=== PATIENT | female | born 1950 | race Caucasian/White ===

== ENCOUNTER 2019-12-31 13:15 | Inpatient (IN) | payer MEDICARE ==
[~2019-12-31] VITALS: Ht 170.2 cm; Wt 86.6 kg
[~2019-12-31 13:15] MED LIST: ARTIFICIAL TEAR15 M3 OP; ASPIRIN EC81 M1 PO; BUPROPION XL150 MG PO; CARBIDOPA-LEVO1 EAC9 PO; HYDROCODONE-AP1 EAC6 PO; LIDODERM 5%1 PATC1 TRANSDERM; LIPITOR10 MG PO; MIRALAX17 GM PO; NAPROSYN500 MG PO; OXYBUTYNIN 5 MG5 M2 PO; REQUIP 0.25 M0.25 M1 PO; SENOKOT-S1 TA1 PO; SINEMET 25-1001 EAC1 PO; TUMS PO; VITAMIN D1000 UNI1 PO
[2019-12-31 13:18] VITALS: BP 164/79
[2019-12-31] MEDS ORDERED: CARBIDOPA-LEVO1 EA10 PO (13:29)
[2019-12-31] MEDS ORDERED: ARICEPT10 M1 PO (13:29)
[2019-12-31] MEDS ORDERED: CRANBERRY450 M1 PO (13:29)
[2019-12-31] MEDS ORDERED: KRISTALOSE20 GM PO (13:30)
[2019-12-31] MEDS ORDERED: IBUPROFEN 600600 M1 PO (13:30)
[2019-12-31] MEDS ORDERED: PROTONIX40 M2 PO (13:31)
[2019-12-31 14:06] LABS: ABSOLUTE BASOPHILS 0.1 thou/uL (0.0-0.2); ABSOLUTE EOSINOPHILS 0.3 thou/uL (0.0-0.7); ABSOLUTE LYMPHOCYTES 0.7 thou/uL (0.8-5.3); ABSOLUTE MONOCYTES 0.5 thou/uL (0.0-1.2); BASOPHILS 0.8 %; EOSINOPHILS 3.8 %; HEMATOCRIT 41.6 % (37.0-47.0); HEMOGLOBIN 13.8 gm/dL (12.0-15.0); LYMPHOCYTES 9.1 %; MCHC 33.2 g/dL (28.0-37.0); MCV 87.3 fL (80.0-100.0); MONOCYTES 6.3 %; MPV 8.6 fl. (7.2-11.1); NUCLEATED RBCS 0 /100WBC; PLATELET COUNT* 212 thou/uL (150-400); RBC 4.77 mil/uL (4.20-5.00); RDW-CV 14.5 % (10.5-14.5); WBC 7.5 thou/uL (4.0-11.0)
[2019-12-31 14:42] LABS: CALCIUM 8.6 mg/dL (8.5-10.1); CREATININE 0.9 mg/dL (0.6-1.3); POTASSIUM 3.9 mmol/L (3.5-5.1)
[2019-12-31 14:47] LABS: ALBUMIN 3.4 g/dL (3.4-5.0); TOTAL BILIRUBIN 0.6 mg/dL (<0.1-1.0); TOTAL PROTEIN 6.8 g/dL (6.4-8.2)
[2019-12-31 16:08] LABS: URINE BILIRUBIN NEGATIVE (Negative); URINE BLOOD NEGATIVE (Negative); URINE CLARITY CLEAR; URINE COLOR YELLOW; URINE GLUCOSE-RANDOM NEGATIVE (Negative); URINE KETONES NEGATIVE (Negative); URINE LEUKOCYTES-REFLEX NEGATIVE (Negative); URINE NITRITE-REFLEX NEGATIVE (Negative); URINE PROTEIN NEGATIVE (Negative); URINE UROBILINOGEN 0.2 E.U./dl (0.2-1.0)
--- NOTE | 2019-12-31 17:02 | EKG ---
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1950 Requested By: Pedro Aragon Order Number: [id number] MD: Trever Georges Measurements Intervals [place] Rate: 59 P: 34 WA: 175 QRS: -19 QRSD: 107 T: 4 QT: 469 QTc: 465 Interpretive Statements Sinus rhythm Borderline left axis deviation Low voltage, precordial leads Borderline T abnormalities, anterior leads No previous ECG available for comparison Electronically Signed On 12-31-2019 17:01:58 CDT by Trever Georges [email or web address] <ELECTRONICALLY SIGNED> By: Trever Georges MD, FACC 12/31/19 1701 1351 1351 Trever Georges MD, [facility] /EPI
[2019-12-31 18:00] VITALS: BP 164/75
[2019-12-31 20:04] VITALS: BP 154/67
[2019-12-31 20:22] LABS: MAGNESIUM 1.8 mg/dL (1.8-2.4); PHOSPHORUS* 3.4 mg/dL (2.5-4.9)
[2019-12-31 20:24] LABS: AMMONIA < 10 umol/L (11-32); CHOLESTEROL 127 mg/dL (<200); HDL CHOLESTEROL 64 mg/dL (>40); LDL CHOLESTEROL 56 mg/dL (<100); TRIGLYCERIDE 36 mg/dL (<150); VLDL 7 mg/dL (<40)
[2019-12-31 20:25] LABS: SERUM ASSESSMENT CLEAR
[2020-01-01] VITALS: BP 138/64
[2020-01-01 04:00] VITALS: BP 164/74
[2020-01-01 05:40] LABS: ABSOLUTE EOSINOPHILS 0.4 thou/uL (0.0-0.7); ABSOLUTE LYMPHOCYTES 1.4 thou/uL (0.8-5.3); ABSOLUTE MONOCYTES 0.6 thou/uL (0.0-1.2); ABSOLUTE NEUTROPHILS 4.4 thou/uL (1.6-8.1); BASOPHILS 0.5 %; EOSINOPHILS 6.5 %; HEMATOCRIT 39.9 % (37.0-47.0); HEMOGLOBIN 13.3 gm/dL (12.0-15.0); MCHC 33.3 g/dL (28.0-37.0); MCV 87.1 fL (80.0-100.0); MONOCYTES 8.7 %; MPV 8.7 fl. (7.2-11.1); NUCLEATED RBCS 0 /100WBC; PLATELET COUNT* 230 thou/uL (150-400); POLYS 64.3 %; RBC 4.58 mil/uL (4.20-5.00); RDW-CV 14.6 % (10.5-14.5); WBC 6.9 thou/uL (4.0-11.0)
[2020-01-01 06:00] LABS: CALCIUM 8.5 mg/dL (8.5-10.1); CREATININE 0.8 mg/dL (0.6-1.3); POTASSIUM 3.8 mmol/L (3.5-5.1)
[2020-01-01 06:04] LABS: TOTAL BILIRUBIN 0.8 mg/dL (<0.1-1.0); TOTAL PROTEIN 6.2 g/dL (6.4-8.2)
[2020-01-01 08:07] VITALS: BP 111/48
[2020-01-01 12:00] VITALS: BP 139/69
[2020-01-01 16:00] VITALS: BP 152/48
[2020-01-01 20:59] VITALS: BP 129/57
[2020-01-02] VITALS (7 sets, daily range): BP systolic 104–141; BP diastolic 45–73
[2020-01-02 02:06] LABS: GLYCOHEMOGLOBIN (HGB A1C) 5.7 % (4.8-5.6)
[2020-01-02 04:03] LABS: HEMATOCRIT 37.8 % (37.0-47.0); HEMOGLOBIN 12.5 gm/dL (12.0-15.0); MCH 28.5 pg (26.0-34.0); MCHC 32.9 g/dL (28.0-37.0); MCV 86.6 fL (80.0-100.0); MPV 8.6 fl. (7.2-11.1); RBC 4.36 mil/uL (4.20-5.00); RDW-CV 14.4 % (10.5-14.5); WBC 6.3 thou/uL (4.0-11.0)
[2020-01-02 04:24] LABS: CALCIUM 8.4 mg/dL (8.5-10.1); CREATININE 0.9 mg/dL (0.6-1.3); POTASSIUM 3.7 mmol/L (3.5-5.1)
[2020-01-02 20:02] LABS: URINE BILIRUBIN NEGATIVE (Negative); URINE BLOOD TRACE (Negative); URINE CLARITY SL CLOUDY; URINE COLOR STRAW; URINE GLUCOSE-RANDOM NEGATIVE (Negative); URINE KETONES TRACE (Negative); URINE LEUKOCYTES-REFLEX NEGATIVE (Negative); URINE NITRITE-REFLEX NEGATIVE (Negative); URINE PROTEIN NEGATIVE (Negative); URINE SPECIFIC GRAVITY 1.015 (1.005-1.030); URINE UROBILINOGEN 0.2 E.U./dl (0.2-1.0)
[2020-01-02 20:04] LABS: BACTERIA-REFLEX >30 Many /HPF (None Seen); MUCUS 0-3 Light strn/LPF (None Seen); SQUAMOUS 4-10 Moderate /LPF (0-3); URINE RBC 0-2 Rare /HPF (0-2); URINE WBC-REFLEX 0-5 Rare /HPF (0-5)
[2020-01-02 20:05] LABS: CASTS None Seen /LPF (None Seen); CRYSTALS None Seen /LPF (None Seen)
[2020-01-03 04:15] VITALS: BP 125/61
[2020-01-03 07:40] VITALS: BP 157/72
[2020-01-03 12:00] VITALS: BP 113/65
[2020-01-03 16:10] VITALS: BP 96/45
[2020-01-03 20:00] VITALS: BP 100/43
[2020-01-04] VITALS: BP 130/59
[2020-01-04 04:00] VITALS: BP 128/53
[2020-01-04 05:19] LABS: HEMATOCRIT 38.5 % (37.0-47.0); HEMOGLOBIN 12.8 gm/dL (12.0-15.0); MCH 28.7 pg (26.0-34.0); MCHC 33.2 g/dL (28.0-37.0); MCV 86.4 fL (80.0-100.0); MPV 8.5 fl. (7.2-11.1); RBC 4.46 mil/uL (4.20-5.00); WBC 6.3 thou/uL (4.0-11.0)
[2020-01-04 05:50] LABS: ALBUMIN 2.9 g/dL (3.4-5.0); CALCIUM 8.2 mg/dL (8.5-10.1); CREATININE 0.9 mg/dL (0.6-1.3); MAGNESIUM 1.8 mg/dL (1.8-2.4); POTASSIUM 3.6 mmol/L (3.5-5.1); TOTAL BILIRUBIN 0.3 mg/dL (<0.1-1.0); TOTAL PROTEIN 5.9 g/dL (6.4-8.2)
[2020-01-04 08:00] VITALS: BP 122/47
[2020-01-04] MEDS ORDERED: CARBIDOPA-LEVO1 EAC7 PO (10:55)
[2020-01-04] MEDS ORDERED: SINEMET 25-1001 EAC1 PO (10:55)
[2020-01-04 12:00] VITALS: BP 120/49
[2020-01-04 16:00] VITALS: BP 110/53
== END 2020-01-04 18:30 | DRG 689 ==
LOC: M.ERS 13:15 → M.TBA-ER 15:53 → M.2W 18:46
PROVIDERS: Emergency Medicine Emergency Medical Services; Internal Medicine; ADMIT Internal Medicine; ATTEND Internal Medicine
DX: N39.0 Urinary tract infection, site not specified (principal); G93.41 Metabolic encephalopathy; E44.0 Moderate protein-calorie malnutrition; G20 Parkinson's disease; F02.80 Dementia in other diseases classified elsewhere, unspecified severity, without behavioral disturbance, psychotic disturbance, mood disturbance, and anxiety; R53.1 Weakness; F32.9 Major depressive disorder, single episode, unspecified; E78.5 Hyperlipidemia, unspecified; M19.90 Unspecified osteoarthritis, unspecified site; Z20.828 Contact with and (suspected) exposure to other viral communicable diseases; Z68.29 Body mass index [BMI] 29.0-29.9, adult; Z79.82 Long term (current) use of aspirin; Z79.899 Other long term (current) drug therapy; Z88.8 Allergy status to other drugs, medicaments and biological substances

== ENCOUNTER 2020-01-04 17:35 | Inpatient (IN) | payer MEDICARE ==
[~2020-01-04] VITALS: Ht 172.7 cm; Wt 82.8 kg
[~2020-01-04 17:35] MED LIST changes: +ARICEPT10 M1 PO; +CARBIDOPA-LEVO1 EA10 PO; +CARBIDOPA-LEVO1 EAC7 PO; +CRANBERRY450 M1 PO; +IBUPROFEN 600600 M1 PO; +KRISTALOSE20 GM PO; +PROTONIX40 M2 PO
[2020-01-04 18:45] VITALS: BP 138/64
[2020-01-04 20:00] VITALS: BP 152/66
[2020-01-05 04:54] LABS: HEMATOCRIT 39.6 % (37.0-47.0); HEMOGLOBIN 13.2 gm/dL (12.0-15.0); MCH 28.9 pg (26.0-34.0); MCHC 33.3 g/dL (28.0-37.0); MCV 86.7 fL (80.0-100.0); MPV 8.8 fl. (7.2-11.1); RBC 4.57 mil/uL (4.20-5.00); RDW-CV 14.7 % (10.5-14.5); WBC 6.9 thou/uL (4.0-11.0)
[2020-01-05 05:18] LABS: CALCIUM 8.6 mg/dL (8.5-10.1); CREATININE 0.9 mg/dL (0.6-1.3); POTASSIUM 3.4 mmol/L (3.5-5.1)
[2020-01-05 07:54] VITALS: BP 112/58
[2020-01-05 19:00] VITALS: BP 101/49
[2020-01-06 07:30] VITALS: BP 146/63
[2020-01-06 19:00] VITALS: BP 101/75
[2020-01-07 08:00] VITALS: BP 137/58
[2020-01-07 20:31] VITALS: BP 110/52
[2020-01-08 09:30] VITALS: BP 118/59
[2020-01-08 20:15] VITALS: BP 114/48
[2020-01-09 08:00] VITALS: BP 88/50
[2020-01-09 20:14] VITALS: BP 91/45
[2020-01-10 08:00] VITALS: BP 97/55
[2020-01-10 19:50] VITALS: BP 77/35
[2020-01-10 20:30] VITALS: BP 88/38
[2020-01-11 07:00] VITALS: BP 128/60
[2020-01-11 07:58] VITALS: BP 128/60
[2020-01-11 19:00] VITALS: BP 84/43
[2020-01-12 04:51] LABS: HEMOGLOBIN 13.2 gm/dL (12.0-15.0); MCH 28.4 pg (26.0-34.0); MCHC 32.9 g/dL (28.0-37.0); MCV 86.4 fL (80.0-100.0); MPV 8.7 fl. (7.2-11.1); RBC 4.63 mil/uL (4.20-5.00); RDW-CV 14.4 % (10.5-14.5)
[2020-01-12 05:08] LABS: CALCIUM 8.8 mg/dL (8.5-10.1); CREATININE 1.1 mg/dL (0.6-1.3)
[2020-01-12 07:32] VITALS: BP 109/46
[2020-01-12 19:00] VITALS: BP 86/41
[2020-01-13 07:00] VITALS: BP 115/59
[2020-01-13 20:16] VITALS: BP 112/54
[2020-01-14 08:16] VITALS: BP 135/58
[2020-01-14 22:15] VITALS: BP 115/53
[2020-01-15] MEDS ORDERED: REQUIP 1 MG TABL1 M1 PO (07:31)
[2020-01-15 08:08] VITALS: BP 115/55
[2020-01-15 15:06] VITALS: BP 115/55
[2020-01-15 16:49] VITALS: BP 115/55
== END 2020-01-15 15:50 | DRG 56 ==
LOC: M.REH 17:35
PROVIDERS: ADMIT Physical Medicine & Rehabilitation; ATTEND Physical Medicine & Rehabilitation
DX: G20 Parkinson's disease (principal); G93.41 Metabolic encephalopathy; E44.0 Moderate protein-calorie malnutrition; N39.0 Urinary tract infection, site not specified; F02.80 Dementia in other diseases classified elsewhere, unspecified severity, without behavioral disturbance, psychotic disturbance, mood disturbance, and anxiety; F32.9 Major depressive disorder, single episode, unspecified; E78.5 Hyperlipidemia, unspecified; I95.9 Hypotension, unspecified; Z20.828 Contact with and (suspected) exposure to other viral communicable diseases; M19.90 Unspecified osteoarthritis, unspecified site; Z68.27 Body mass index [BMI] 27.0-27.9, adult; Z79.82 Long term (current) use of aspirin; Z79.899 Other long term (current) drug therapy; Z88.8 Allergy status to other drugs, medicaments and biological substances

== ENCOUNTER 2020-05-27 00:47 | Emergency (ER) | payer MEDICARE ==
[~2020-05-27] VITALS: Ht 172.7 cm; Wt 87.7 kg
[~2020-05-27 00:47] MED LIST changes: +REQUIP 1 MG TABL1 M1 PO
[2020-05-27] MEDS ORDERED: LOVENOX40 MG/0.4 SUBQ (00:54)
[2020-05-27 01:27] LABS: URINE BILIRUBIN NEGATIVE (Negative); URINE BLOOD NEGATIVE (Negative); URINE CLARITY CLEAR; URINE COLOR YELLOW; URINE GLUCOSE-RANDOM NEGATIVE (Negative); URINE KETONES NEGATIVE (Negative); URINE LEUKOCYTES-REFLEX TRACE (Negative); URINE NITRITE-REFLEX NEGATIVE (Negative); URINE PROTEIN NEGATIVE (Negative); URINE SPECIFIC GRAVITY >= 1.030 (1.005-1.030); URINE UROBILINOGEN 0.2 E.U./dl (0.2-1.0)
[2020-05-27 01:47] LABS: SQUAMOUS 0-3 Few /LPF (0-3); URINE RBC 3-10 Few /HPF (0-2); URINE WBC-REFLEX >25 Many /HPF (0-5); WBC CLUMPS Few (None Seen)
[2020-05-27 01:48] LABS: BACTERIA-REFLEX >30 Many /HPF (None Seen); CASTS None Seen /LPF (None Seen); CRYSTALS None Seen /LPF (None Seen); MUCUS 0-3 Light strn/LPF (None Seen)
[2020-05-27 02:11] LABS: ABSOLUTE EOSINOPHILS 0.6 thou/uL (0.0-0.7); ABSOLUTE LYMPHOCYTES 0.9 thou/uL (0.8-5.3); ABSOLUTE MONOCYTES 0.6 thou/uL (0.0-1.2); ABSOLUTE NEUTROPHILS 4.6 thou/uL (1.6-8.1); BASOPHILS 0.5 %; EOSINOPHILS 8.4 %; HEMATOCRIT 36.9 % (37.0-47.0); HEMOGLOBIN 12.1 gm/dL (12.0-15.0); LYMPHOCYTES 12.9 %; MCH 27.8 pg (26.0-34.0); MCHC 32.9 g/dL (28.0-37.0); MCV 84.6 fL (80.0-100.0); MONOCYTES 8.6 %; MPV 8.2 fl. (7.2-11.1); NUCLEATED RBCS 0 /100WBC; PLATELET COUNT* 231 thou/uL (150-400); POLYS 69.6 %; RBC 4.36 mil/uL (4.20-5.00); RDW-CV 14.4 % (10.5-14.5); WBC 6.6 thou/uL (4.0-11.0)
[2020-05-27 02:24] LABS: CALCIUM 8.7 mg/dL (8.5-10.1); CREATININE 0.9 mg/dL (0.6-1.3)
[2020-05-27] MEDS ORDERED: BACTRIM DS TAB1 EACH PO (02:32)
[2020-05-27 06:46] VITALS: BP 173/73
== END 2020-05-27 06:48 | disposition home or self-care (01) ==
LOC: M.ERS 00:47
PROVIDERS: Emergency Medicine
DX: N39.0 Urinary tract infection, site not specified (principal); E78.5 Hyperlipidemia, unspecified; M19.90 Unspecified osteoarthritis, unspecified site; G20 Parkinson's disease; Z88.8 Allergy status to other drugs, medicaments and biological substances

== ENCOUNTER 2020-07-13 00:50 | Inpatient (IN) | payer MEDICARE ==
[~2020-07-13] VITALS: Ht 172.7 cm; Wt 85.3 kg
[2020-07-13] VITALS (147 sets, daily range): BP systolic 49–240; BP diastolic 17–135
--- NOTE | ~2020-07-13 | CON ---
[address] [address] CONSULTATION Name: KRYSTLE HDZ Room: [address] IN M.R.#: [id number] Admission: 07/13/20 Attend Phys: Neal Benavides Discharge: Date of : 46 Report #: [id number] THIS REPORT FOR: cc: Cornel Cook MD, Todd A. MD Khosla, Parveen K. MD ~ DATE OF SERVICE: 07/13/2020 HISTORY OF PRESENT ILLNESS: This is a 69-year-old female patient, who was admitted after the patient was found to be asystolic, pulseless, and apneic. The patient is unable to provide any history. I talked to the nurses before and after looking after the patient. I tried to call the patient's son, but was unable to reach him, but I was able to reach the patient's [id number] and she gave a history that this patient has dementia as well as Parkinson disease. She had a cardiac arrest and she was put on hypothermia protocol. The family did not want to proceed with that and hypothermia protocol was discontinued and the patient was started on warming. The patient has not warmed up yet. There was some confusion whether the patient was a DNR or not, but she is a DNR now. She had multiple evaluations when she was here and multiple consultants are involved. The nurses tell me she is not overbreathing the vent and her pupils are fixed and dilated. She has a history of Parkinson disease as well as dementia. Rest of the 14-point review of systems is summarized in other consultants' note, which was reviewed and is noncontributory. PAST MEDICAL HISTORY: Positive for dementia and Parkinson disease with severe compromise of quality of life. FAMILY HISTORY: Unremarkable. SOCIAL HISTORY: She has a son; I could not talk to him, but I did talk to the [id number]. PHYSICAL EXAMINATION: The patient is unresponsive. Her pupils are fixed and dilated. Rest of the neurological examination is not possible. She does not assist the vent. IMPRESSION: I talked to the family in detail that this patient has a severe hypoxic encephalopathy as indicated on the CT scan. If they want to stop everything, it can be done anytime, but they tell me that they like to donate the organs if possible. I told them that will require declaring the patient's brain and that is an elaborate process. The first thing is the patient needs to be warmed up and the patient is in the process of getting warmed up. Once she gets warmed up, we will get an EEG as well as do a clinical examination to see if she has any neurological activity. [place] [address] CONSULTATION Name: KRYSTLE HDZ Room: [address] IN M.R.#: [id number] Admission: 07/13/20 Attend Phys: Neal Benavides Discharge: Date of : 46 Report #: [id number] found, then I will suggest doing a blood brain flow study and if that is also negative, Pulmonology will do the apnea test and if the apnea test does not show any attempt to do breathing, then the patient can be declared brain at that time. I discussed that with the family and the family is agreeable with this plan. I have talked to the automotive specialty technician and they will do the EEG once the patient warms up and I spent more than 50 minutes of time taking care of this patient and majority was spent counseling, coordinating, reviewing the record, talking to the family, and reviewing the patient's imaging study. Thank you very much for this referral. By: [id number] Pérez MD /nt
--- NOTE | ~2020-07-13 | EEG ---
[facility] [address] [place] [address] EEG STUDY REPORT Name: KRYSTLE HDZ Room: [address] IN M.R.#: [id number] Admission: 07/13/20 Attend Phys: Neal Benavides Discharge: Date of : 46 Report #: [id number] THIS REPORT FOR: cc: Cornel Cook MD, Todd A. MD Khosla,Mor Chambers MD ~ DATE OF SERVICE: 07/14/2020 This patient is being evaluated for electrocerebral silence. EEG was done by placing the electrode by standard 10-20 system of electrode placement. Both referential and sequential montages were used for recording. At normal sensitivity of 7 microvolts, there is no cortical activity. However, when sensitivity is changed to 2 microvolt and 1 microvolt, there is a baseline artifact. That is probably an artifact, but this study is not good enough to say that with certainty and say that there is no electrical activity. Photic stimulation is unremarkable. IMPRESSION: This patient's EEG shows no electrical activity at the regular 7 microvolt. However, at 2 microvolt, there is a lot of baseline artifact present. That is most likely an artifact, but very low activity cannot be completely excluded and it might be desirable to do some other testing like brain flow study in this patient. Thank you very much for this referral. By: 1001 1008Mor Pérez MD /aftab
[~2020-07-13 00:50] MED LIST changes: +BACTRIM DS TAB1 EACH PO; +LOVENOX40 MG/0.4 SUBQ
[2020-07-13 01:20] LABS: MCV 92.4 fL (80.0-100.0)
[2020-07-13 01:24] LABS: CALCIUM 7.9 mg/dL (8.5-10.1); CREATININE 1.4 mg/dL (0.6-1.3); POTASSIUM 4.1 mmol/L (3.5-5.1)
[2020-07-13 01:25] LABS: HEMATOCRIT 40.8 % (37.0-47.0); HEMOGLOBIN 12.2 gm/dL (12.0-15.0); MCH 27.7 pg (26.0-34.0); MPV 8.5 fl. (7.2-11.1); NUCLEATED RBCS 1 /100WBC; PLATELET COUNT* 202 thou/uL (150-400); RBC 4.42 mil/uL (4.20-5.00); RDW-CV 16.2 % (10.5-14.5); WBC 14.9 thou/uL (4.0-11.0)
[2020-07-13 01:35] LABS: ALBUMIN 2.4 g/dL (3.4-5.0); MAGNESIUM 2.7 mg/dL (1.8-2.4); TOTAL BILIRUBIN 0.3 mg/dL (<0.1-1.0); TOTAL PROTEIN 5.6 g/dL (6.4-8.2)
[2020-07-13 01:38] LABS: INR 1.3; PROTIME 13.5 Seconds (9.20-11.50)
[2020-07-13 02:36] LABS: URINE BILIRUBIN NEGATIVE (Negative); URINE BLOOD 3+ (Negative); URINE CLARITY CLEAR; URINE COLOR YELLOW; URINE GLUCOSE-RANDOM 1+ (Negative); URINE KETONES NEGATIVE (Negative); URINE LEUKOCYTES-REFLEX NEGATIVE (Negative); URINE NITRITE-REFLEX NEGATIVE (Negative); URINE PROTEIN 3+ (Negative); URINE SPECIFIC GRAVITY 1.025 (1.005-1.030); URINE UROBILINOGEN 0.2 E.U./dl (0.2-1.0)
[2020-07-13 02:49] LABS: CASTS None Seen /LPF (None Seen); SQUAMOUS 4-10 Moderate /LPF (0-3)
[2020-07-13 02:53] LABS: BACTERIA-REFLEX 1-9 Few /HPF (None Seen); URINE RBC >20 Many /HPF (0-2); URINE WBC-REFLEX 0-5 Rare /HPF (0-5)
[2020-07-13 02:54] LABS: CRYSTALS None Seen /LPF (None Seen)
[2020-07-13 03:00] LABS: ABSOLUTE EOSINOPHILS 0.7 thou/uL (0.0-0.7); ABSOLUTE MONOCYTES 0.4 thou/uL (0.0-1.2); ABSOLUTE NEUTROPHILS 5.7 thou/uL (1.6-8.1); ATYPICAL LYMPHS 3 %; METAMYELOCYTES 1 %
[2020-07-13 03:04] LABS: ANISOCYTOSIS 1+; BURR CELLS Occasional; LARGE PLATELETS OCCASIONAL; PLATELET ESTIMATE ADEQUATE
[2020-07-13 03:19] LABS: BE -14.8 mmol/L (-2 to +3); PCO2 38.4 mmHg (35.0-45.0); PO2 104.5 mmHg (75.0-100.0)
[2020-07-13 03:22] LABS: pH 7.154 (7.340-7.450)
[2020-07-13 07:12] LABS: CALCIUM 8.3 mg/dL (8.5-10.1); CREATININE 1.3 mg/dL (0.6-1.3); POTASSIUM 4.2 mmol/L (3.5-5.1)
[2020-07-13 07:48] LABS: BE -10.6 mmol/L (-2 to +3); PCO2 40.9 mmHg (35.0-45.0); PO2 89.7 mmHg (75.0-100.0)
[2020-07-13 07:51] LABS: pH 7.224 (7.340-7.450)
--- NOTE | 2020-07-13 09:32 | EKG ---
[place] [address] ELECTROCARDIOGRAM REPORT Name: KRYSTLE HDZ Room: [address] ADM IN M.R.#: [id number] Admission: 07/13/20 Attend Phys: Sonny Elias Discharge: Date of : 46 Date of Service: 07/13/20 0058 Report #: [id number] THIS REPORT FOR: //name// [facility] ED Test Date: 2020-07-13 Test Time: 00:58:53 Pat Name: KRYSTLE HDZ Department: Room: 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 This finding is new compared to the prior EKG. Electronically Signed On 07-13-2020 9:31:47 CDT by Grady Aden [email or web address] <ELECTRONICALLY SIGNED> By: Michael Aden MD, [facility] 07/13/20 0931 Michael Aden MD, [facility] /EPI
[2020-07-13 10:18] LABS: ABSOLUTE EOSINOPHILS 0.3 thou/uL (0.0-0.7); ABSOLUTE LYMPHOCYTES 1.2 thou/uL (0.8-5.3); ABSOLUTE MONOCYTES 0.4 thou/uL (0.0-1.2); ABSOLUTE NEUTROPHILS 18.8 thou/uL (1.6-8.1); BASOPHILS 0.1 %; EOSINOPHILS 1.2 %; HEMATOCRIT 45.9 % (37.0-47.0); LYMPHOCYTES 5.9 %; MCH 27.7 pg (26.0-34.0); MONOCYTES 1.9 %; NUCLEATED RBCS 0 /100WBC; POLYS 90.9 %; RBC 5.31 mil/uL (4.20-5.00); RDW-CV 15.6 % (10.5-14.5); WBC 20.6 thou/uL (4.0-11.0)
[2020-07-13 10:19] LABS: HEMOGLOBIN 14.7 gm/dL (12.0-15.0); MCV 86.5 fL (80.0-100.0); PLATELET COUNT* 393 thou/uL (150-400)
[2020-07-13 10:31] LABS: INR 1.5
[2020-07-13 10:47] LABS: CALCIUM 7.5 mg/dL (8.5-10.1); CREATININE 1.3 mg/dL (0.6-1.3); MAGNESIUM 2.3 mg/dL (1.8-2.4); PHOSPHORUS* 4.3 mg/dL (2.5-4.9); POTASSIUM 3.8 mmol/L (3.5-5.1)
--- NOTE | 2020-07-13 11:51 | EKG ---
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 <ELECTRONICALLY SIGNED> By: Michael Aden MD, [facility] 07/13/20 1151 2 2 Michael Aden MD, [facility] /EPI
--- NOTE | 2020-07-13 14:11 | CON ---
[address] [address] CONSULTATION Name: KRYSTLE HDZ Room: [address] IN M.R.#: [id number] Admission: 07/13/20 Attend Phys: Neal Benavides Discharge: Date of : 46 Report #: [id number] THIS REPORT FOR: cc: Cornel Cook MD, Todd A. MD Pervez, Adeel MD ~ DATE OF SERVICE: 07/13/2020 Consult has been requested by Dr. Chester. INDICATION FOR CONSULTATION: Acute hypoxemic respiratory failure/cardiac arrest. HISTORY OF PRESENT ILLNESS: This is a 69-year-old female with past medical history as mentioned below. The patient was found unresponsive and in asystole at a long-term care facility. The patient did at that time receive CPR and 3 doses of epinephrine. The patient did eventually have a return of circulation. The patient, however, since then has remained completely unresponsive. She also is significantly hypotensive. Currently, she is on high-dose norepinephrine. I do not have any recordable blood pressure; however, she does have good pulses; and therefore, this may be a difficulty in measuring blood pressure, we are getting a tracing from the O2 saturation probe as well. Attempts at placing an A-line so far have failed. She does have a central line in place. Currently, she is on 70% FiO2 with 5 of PEEP. She is saturating in the mid 90s on the monitor. She does appear to be bronchospastic on my exam. The ET tube appears to be just below the vocal cords. She does not have a full return of tidal volume, set tidal volume, I have increased to 500, getting a return of around 400. Peak airway pressures are not elevated. The patient has been having watery diarrhea. She is unable to provide a further history or review of systems. PAST MEDICAL HISTORY: Parkinson's disease, depression, hyperlipidemia, osteoarthritis, closed reduction of nasal fracture, ventriculoperitoneal shunt. SOCIAL HISTORY: No known history of smoking, ethanol abuse or drug abuse. She is a resident of a long-term care facility. ALLERGIES: SHE HAS HAD EITHER AN ALLERGY OR ADVERSE REACTION TO XANAX AND RANITIDINE. CURRENT MEDICATIONS: List in [facility] reviewed. HOME MEDICATIONS: [place] [address] CONSULTATION Name: KRYSTLE HDZ Room: [address] IN [facility].#: [id number] Admission: 07/13/20 Attend Phys: Neal Benavides Discharge: Date of : 46 Report #: [id number] FAMILY HISTORY: No pertinent family history. PHYSICAL EXAMINATION: GENERAL: The patient is completely unresponsive, currently is on code ICE. VITAL SIGNS: Blood pressure is 32/9, heart rate is 88, last recorded blood pressure with 20 mcg of norepinephrine is 128/50. I am unable to record blood pressure at this time; however, the patient does not appear to have PEA. She has good pulses, likely this is a difficulty in measuring blood pressure noninvasively. O2 saturation is reading 95%. We have a good waveform on the O2 saturation. The patient is at times overbreathing the ventilator, which is set at a rate of 16, FiO2 of 70%, 5 of PEEP, tidal volume 500, return tidal volume as above is 400. Other than sometimes overbreathing the ventilator, the patient is completely unresponsive. Body mass index is 28.6. HEENT: Pupils are widely dilated and fixed. Endotracheal tube is high as above. NECK: Does not show raised JVP, asymmetry, mass or lymph nodes. CHEST: Symmetrical expansion on inspection and palpation. On auscultation, there are expiratory wheezes bilaterally. Breath sounds are bilaterally equal. HEART: Regular. There is no murmur. ABDOMEN: Soft, nontender. EXTREMITIES: Lower extremities show no edema, no calf tenderness. SKIN: Cold as expected with code ICE. NEUROLOGICAL: The patient is completely unresponsive. IMAGING: Chest x-ray is reviewed. CTA chest from last night is also reviewed. Endotracheal tube was too high at this time, but still below the vocal cords. There is an infiltrate on the x-ray of the right lung base consistent with aspiration. There are infiltrates and atelectasis noted at bilateral lung bases on the CTA chest performed during the night. Other imaging including CT of the C-spine as well as CT head report also in [facility] reviewed. LABORATORY DATA: Arterial blood gases as well as lab work in [facility] reviewed. ASSESSMENT AND PLAN: 1. Cardiac arrest/anoxic brain injury. The patient is on code ICE. Unfortunately, she appears to have a very poor prognosis. 2. Acute hypoxemic respiratory failure. The endotracheal tube is high. We will adjust the endotracheal tube. We will repeat a chest x-ray. If active measures are continued then we will obtain a followup arterial blood gas and will attempt to place an A-line as well. 3. Aspiration pneumonia/atelectasis. She is on Zosyn. If active measures are to be continued, then I recommend obtaining a sputum culture and nasal swab for MRSA. 4. Bronchospasm. She is on DuoNeb. We will also go ahead and give her [facility] [address] [place] [address] CONSULTATION Name: KRYSTLE HDZ Room: [address] IN [facility]#: [id number] Admission: 07/13/20 Attend Phys: Neal Benavides Discharge: Date of : 46 Report #: [id number] Solu-Medrol. 5. Severe shock. Recommendation regarding A-line as above. She is receiving IV fluids. We will continue as long as we are able to ventilate. Agree with sodium bicarbonate as well. We will follow up arterial blood gases as above. 6. Acute renal insufficiency, fluid resuscitation as above. Baseline creatinine is 0.9. 7. History of parkinsonism. 8. History of normal pressure hydrocephalus with a SLOT SUPERVISOR shunt placement. The patient is critically ill at this time. Total time spent providing critical care to this patient today is around 42 minutes. <ELECTRONICALLY SIGNED> By: Parish Matos MD 07/13/20 1411 1158 1220Parish Matos MD /nt
[2020-07-13 17:07] LABS: HEMATOCRIT 45.6 % (37.0-47.0); HEMOGLOBIN 14.5 gm/dL (12.0-15.0); MCH 27.2 pg (26.0-34.0); MCHC 31.7 g/dL (28.0-37.0); MCV 85.6 fL (80.0-100.0); RBC 5.33 mil/uL (4.20-5.00); RDW-CV 15.5 % (10.5-14.5); WBC 16.5 thou/uL (4.0-11.0)
[2020-07-13 17:19] LABS: CALCIUM 6.8 mg/dL (8.5-10.1); CREATININE 1.5 mg/dL (0.6-1.3)
[2020-07-13 17:26] LABS: POTASSIUM 2.9 mmol/L (3.5-5.1)
[2020-07-13 17:30] LABS: APTT 31.9 Seconds (25.0-31.3); FIBRINOGEN 131 mg/dL (200-340); INR 1.4; PROTIME 14.7 Seconds (9.20-11.50)
[2020-07-13 18:09] LABS: CALCIUM 7.8 mg/dL (8.5-10.1); CK-MB MASS 61.9 ng/mL (<0.5-3.6); MAGNESIUM 1.7 mg/dL (1.8-2.4); PHOSPHORUS* 2.5 mg/dL (2.5-4.9)
[2020-07-13 18:22] LABS: TROPONIN-I LEVEL 1.63 ng/mL (<0.06)
[2020-07-14] VITALS (28 sets, daily range): BP systolic 111–158; BP diastolic 54–74
[2020-07-14 00:51] LABS: ABSOLUTE EOSINOPHILS 0.1 thou/uL (0.0-0.7); ABSOLUTE LYMPHOCYTES 0.5 thou/uL (0.8-5.3); ABSOLUTE MONOCYTES 0.8 thou/uL (0.0-1.2); ABSOLUTE NEUTROPHILS 23.7 thou/uL (1.6-8.1); BASOPHILS 0.1 %; EOSINOPHILS 0.3 %; HEMATOCRIT 44.5 % (37.0-47.0); HEMOGLOBIN 13.9 gm/dL (12.0-15.0); LYMPHOCYTES 2.1 %; MCH 26.8 pg (26.0-34.0); MCHC 31.3 g/dL (28.0-37.0); MCV 85.6 fL (80.0-100.0); MONOCYTES 3.1 %; MPV 8.4 fl. (7.2-11.1); NUCLEATED RBCS 0 /100WBC; PLATELET COUNT* 352 thou/uL (150-400); POLYS 94.4 %; RDW-CV 15.8 % (10.5-14.5); WBC 25.1 thou/uL (4.0-11.0)
[2020-07-14 00:59] LABS: CALCIUM 7.4 mg/dL (8.5-10.1); CREATININE 1.7 mg/dL (0.6-1.3)
[2020-07-14 01:00] LABS: POTASSIUM 3.9 mmol/L (3.5-5.1)
[2020-07-14 01:10] LABS: APTT 30.9 Seconds (25.0-31.3); FIBRINOGEN 212 mg/dL (200-340); INR 1.2; PROTIME 12.5 Seconds (9.20-11.50)
[2020-07-14 01:11] LABS: MAGNESIUM 1.6 mg/dL (1.8-2.4); PHOSPHORUS* 2.6 mg/dL (2.5-4.9)
[2020-07-14 08:54] LABS: CALCIUM 7.4 mg/dL (8.5-10.1); CREATININE 1.8 mg/dL (0.6-1.3); MAGNESIUM 2.1 mg/dL (1.8-2.4); PHOSPHORUS* 3.2 mg/dL (2.5-4.9); POTASSIUM 4.6 mmol/L (3.5-5.1)
[2020-07-14 09:13] LABS: ABSOLUTE LYMPHOCYTES 0.8 thou/uL (0.8-5.3); ABSOLUTE MONOCYTES 1.2 thou/uL (0.0-1.2); ABSOLUTE NEUTROPHILS 35.4 thou/uL (1.6-8.1); BASOPHILS 0.1 %; EOSINOPHILS 0.1 %; HEMATOCRIT 43.2 % (37.0-47.0); HEMOGLOBIN 13.4 gm/dL (12.0-15.0); LYMPHOCYTES 2.2 %; MCH 26.6 pg (26.0-34.0); MCHC 31.1 g/dL (28.0-37.0); MCV 85.7 fL (80.0-100.0); MONOCYTES 3.2 %; MPV 8.5 fl. (7.2-11.1); NUCLEATED RBCS 0 /100WBC; PLATELET COUNT* 323 thou/uL (150-400); POLYS 94.4 %; RBC 5.04 mil/uL (4.20-5.00); RDW-CV 15.8 % (10.5-14.5); WBC 37.5 thou/uL (4.0-11.0)
[2020-07-14 09:26] LABS: INR 1.2; PROTIME 12.5 Seconds (9.20-11.50)
[2020-07-14 11:27] LABS: BE -7.2 mmol/L (-2 to +3); PCO2 36.6 mmHg (35.0-45.0); PO2 101.8 mmHg (75.0-100.0); pH 7.314 (7.340-7.450)
== END 2020-07-14 14:58 | DRG 208 ==
LOC: M.ERS 00:50 → M.ICU 03:41 → M.TBA-ER 03:41 → M.ICU 04:50
PROVIDERS: Emergency Medicine; Internal Medicine; Internal Medicine Critical Care Medicine; ADMIT Internal Medicine; ATTEND Internal Medicine
PROC: 5A12012 Performance of Cardiac Output, Single, Manual (ICD-10-PCS; principal; 2020-07-13)
PROC: 02HV33Z Insertion of Infusion Device into Superior Vena Cava, Percutaneous Approach (ICD-10-PCS; principal; 2020-07-13)
PROC: 5A1945Z Respiratory Ventilation, 24-96 Consecutive Hours (ICD-10-PCS; principal; 2020-07-13)
PROC: 0BH17EZ Insertion of Endotracheal Airway into Trachea, Via Natural or Artificial Opening (ICD-10-PCS; principal; 2020-07-13)
DX: J96.01 Acute respiratory failure with hypoxia (principal); J69.0 Pneumonitis due to inhalation of food and vomit; I21.4 Non-ST elevation (NSTEMI) myocardial infarction; N17.0 Acute kidney failure with tubular necrosis; G93.1 Anoxic brain damage, not elsewhere classified; J98.11 Atelectasis; E87.2 Acidosis; G91.2 (Idiopathic) normal pressure hydrocephalus; N39.0 Urinary tract infection, site not specified; R65.10 Systemic inflammatory response syndrome (SIRS) of non-infectious origin without acute organ dysfunction; E87.0 Hyperosmolality and hypernatremia; I46.9 Cardiac arrest, cause unspecified; R57.8 Other shock; Z20.822 Contact with and (suspected) exposure to COVID-19; F32.9 Major depressive disorder, single episode, unspecified; E78.5 Hyperlipidemia, unspecified; F03.90 Unspecified dementia, unspecified severity, without behavioral disturbance, psychotic disturbance, mood disturbance, and anxiety; M19.90 Unspecified osteoarthritis, unspecified site; Z66 Do not resuscitate; G93.89 Other specified disorders of brain; K75.89 Other specified inflammatory liver diseases; G20 Parkinson's disease; Z88.8 Allergy status to other drugs, medicaments and biological substances; Z79.899 Other long term (current) drug therapy